=== PATIENT | female | born 1990 | race African-American/Black ===

== ENCOUNTER 2016-08-28 18:27 | Emergency (ER) | payer OTHER ==
[~2016-08-28] VITALS: Ht 180.3 cm; Wt 54.4 kg
[2016-08-28 18:57] VITALS: BP 113/77
[2016-08-28 19:43] LABS: BASOPHILS % (AUTO) 2.2 % (0.0-2.0); EOSINOPHILS % (AUTO) 0.3 % (0.0-3.0); LYMPHOCYTES % (AUTO) 12.1 % (20.0-45.0); MEAN CORPUSCULAR HGB CONC 30.7 G/DL (32.0-36.0); MEAN CORPUSCULAR VOLUME 91 FL (80-99); MEAN PLATELET VOLUME 7.4 FL (6.5-10.1); MONOCYTES % (AUTO) 9.3 % (1.0-10.0); NEUTROPHILS % (AUTO) 76.1 % (45.0-75.0); PLATELET COUNT 375 K/UL (150-450); RED BLOOD COUNT 5.11 M/UL (4.20-5.40); RED CELL DISTRIBUTION WIDTH 12.2 % (11.6-14.8); WHITE BLOOD COUNT 11.7 K/UL (4.8-10.8)
--- NOTE | 2016-08-28 19:45 | Emergency Room Report ---
History of Present Illness General Chief Complaint: Upper Extremity Injury Source: Patient Present Illness HPI 25-year-old female presents to the emergency department complaining of bruise to the forehead after a syncopal episode earlier this afternoon hours. Pt reports 5/10 pain, localized, and tenderness. Patient denies symptoms leading up to syncope. Patient describes brief loss of consciousness. Patient reports feeling mildly lightheaded after getting up to walk to the elevator. Patient describes not eating any food all day. Patient also reports that she had recent URI such as nasal congestion and rhinorrhea with decrease in appetite. Patient denies abdominal pain, cough, chest pain, palpitations, seizures, lesions in the mouth. Patient denies drug use or . Patient denies nausea, vomiting, fevers, chills. Patient denies past medical history. Denies, weakness, recent head injury, Constipation or diarrhea. Denies Neck or back pain. Event was unwitnessed. This is the first occurrence of syncopal episode for this patient. Denies CP, Palpitations, AMS, dizziness, Changes in Vision, Sensation, paresthesias, or a sudden severe headache. Allergies: Coded Allergies: CEPHALEXIN (Verified Allergy, Unknown, 08/28/16) Patient History Past Medical History: see triage record Past Surgical History: none Pertinent Family History: none Last Menstrual Period: 12/21/2015 Now: No Reviewed Nursing Documentation: PMH: Agreed, PSxH: Agreed Nursing Documentation-PMH Past Medical History: No History, Except For Review of Systems All Other Systems: negative except mentioned in HPI Physical Exam Vital Signs Date Time Temp Pulse Resp B/P Pulse Ox O2 Delivery O2 Flow Rate FiO2 08/28/16 18:43 97.3 102 16 113/77 99 Room Air Sp02 EP Interpretation: reviewed, normal General Appearance: no apparent distress, alert, GCS 15, non-toxic Head: normocephalic, other - 2cm hematoma noted to the forehead. Eyes: bilateral eye PERRL, bilateral eye normal inspection ENT: hearing grossly normal, normal pharynx, no angioedema, normal voice, TMs + canals normal, uvula midline, moist mucus membranes, other - no oral lesions noted. Neck: full range of motion, no meningismus, no bony tend, supple/symm/no masses Respiratory: chest non-tender, lungs clear, normal breath sounds, speaking full sentences Cardiovascular #1: regular rate, rhythm, no edema Cardiovascular #2: 2+ radial (R), 2+ radial (L) Rectal: deferred Genitourinary: normal inspection, no CVA tenderness Musculoskeletal: back normal, gait/station normal, normal range of motion, non- tender, no calf tenderness Neurologic: alert, oriented x3, responsive, motor strength/tone normal, sensory intact, speech normal, other - negative puga's Psychiatric: judgement/insight normal, memory normal, mood/affect normal, no suicidal/homicidal ideation Skin: normal color, no rash, warm/dry, well hydrated Lymphatic: no adenopathy Medical Decision Making PA Attestation Dr. arreola is my supervising Physician whom patient management has been discussed with. Diagnostic Impression: Primary Impression: Contusion Qualified Codes: S00.83XA - Contusion of other part of head, initial encounter Additional Impression: Dehydration, mild ER Course Pt. presents to the ED c/o possible syncopal episode at noon today, first occurrence Ddx considered but are not limited to dysrhythmia, methamphetamine, hypoglycemia , hypovolemia, , intracranial process, vasovagal. Vital signs: are WNL, pt. is afebrile H&PE are most consistent with syncopal episode, most likely secondary to dehydration or hypoglycemia, will do basic lab work and EKG. Pt does not exhibit focal neurological deficit, AMS, or evidence of seizure activity. ORDERS: -12-lead EK BPM, No acute ST changes, interpreted by Dr. Arevalo. -CBC: - CMP: mild hypochloremia -Troponin: WNL -CK: WNL -Ck-MB: WNL ED INTERVENTIONS: -500 mL normal saline bolus IV -DMV : loss of consciousness form was filled out, and given to RN for completion and transmission to DMV. DISCHARGE: At this time pt. is stable for d/c to home. Will provide printed patient care instructions, and any necessary prescriptions. Care plan and follow up instructions have been discussed with the patient prior to discharge. Labs Test 08/28/16 19:30 White Blood Count 11.7 K/UL (4.8-10.8) Red Blood Count 5.11 M/UL (4.20-5.40) Hemoglobin 14.3 G/DL (12.0-16.0) Hematocrit 46.6 % (37.0-47.0) Mean Corpuscular Volume 91 FL (80-99) Mean Corpuscular Hemoglobin 28.0 PG (27.0-31.0) Mean Corpuscular Hemoglobin Concent 30.7 G/DL (32.0-36.0) Red Cell Distribution Width 12.2 % (11.6-14.8) Platelet Count 375 K/UL (150-450) Mean Platelet Volume 7.4 FL (6.5-10.1) Neutrophils (%) (Auto) 76.1 % (45.0-75.0) Lymphocytes (%) (Auto) 12.1 % (20.0-45.0) Monocytes (%) (Auto) 9.3 % (1.0-10.0) Eosinophils (%) (Auto) 0.3 % (0.0-3.0) Basophils (%) (Auto) 2.2 % (0.0-2.0) Sodium Level 140 mEQ/L (135-145) Potassium Level 4.0 mEQ/L (3.4-4.9) Chloride Level 96 mEQ/L (98-107) Carbon Dioxide Level 27 mEQ/L (20-30) Anion Gap 17 (5-15) Blood Urea Nitrogen 10 mg/dL (7-23) Creatinine 1.0 mg/dL (0.5-0.9) Estimat Glomerular Filtration Rate > 60 mL/min (>60) Glucose Level 90 mg/dL (74-106) Calcium Level 10.1 mg/dL (8.6-10.2) Total Bilirubin 0.3 mg/dL (0.0-1.2) Aspartate Amino Transf (AST/SGOT) 23 U/L (5-40) Alanine Aminotransferase (ALT/SGPT) 14 U/L (3-33) Alkaline Phosphatase 79 U/L (35-104) Total Creatine Kinase 173 U/L (26-140) Creatine Kinase MB 1.9 ng/mL (< 3.8) Creatine Kinase MB Relative Index 1.0 Troponin I < 0.30 ng/mL (<=0.30) Total Protein 8.9 g/dL (6.6-8.7) Albumin 4.7 g/dL (3.5-5.2) Globulin 4.2 g/dL Albumin/Globulin Ratio 1.1 (1.0-2.7) Last Vital Signs Date Time Temp Pulse Resp B/P Pulse Ox O2 Delivery O2 Flow Rate FiO2 08/28/16 18:57 97.3 80 18 113/77 99 Room Air Disposition: HOME, SELF-CARE Condition: Stable Scripts Acetaminophen* (TYLENOL EXTRA STRENGTH*) 500 Mg Tablet 500 MG ORAL Q6H, #30 TAB 0 Refills Prov: Annmarie Sen 08/28/16 Referrals: [facility] (PCP) Patient Instructions: Dehydration, Adult, [id number], Syncope, [id number] Additional Instructions: Take medications as directed. Follow up with PCP in 3-5 days Return sooner to ED if new symptoms occur, or current symptoms become worse. Annmarie Sen Aug 28, 2016 19:45
[2016-08-28 19:57] LABS: TROPONIN I < 0.30 ng/mL (<=0.30)
[2016-08-28 19:58] LABS: ALANINE AMINOTRANSFERASE 14 U/L (3-33); ALBUMIN/GLOBULIN RATIO 1.1 (1.0-2.7); ANION GAP 17 (5-15); ASPARTATE AMINO TRANSFERASE 23 U/L (5-40); CALCIUM 10.1 mg/dL (8.6-10.2); CARBON DIOXIDE 27 mEQ/L (20-30); CHLORIDE 96 mEQ/L (98-107); GLOMERULAR FILTRATION RATE > 60 mL/min (>60); HEMOLYSIS 6; SODIUM 140 mEQ/L (135-145); TOTAL PROTEIN 8.9 g/dL (6.6-8.7)
[2016-08-28 20:08] LABS: CKMB 1.9 ng/mL (< 3.8)
[2016-08-28] MEDS ORDERED: TYLENOL EXTRA500 MG ORAL (20:57)
[2016-08-28 21:28] VITALS: BP 115/78
--- NOTE | 2016-08-30 19:04 | Cardiology Report ---
APPROVED REPORT EKG Measurement Heart [id number] Normal sinus rhythm Early repolarization Normal ECG
== END 2016-08-28 21:30 | disposition home or self-care (01) ==
LOC: EMR 19:15
DX: S00.83XA Contusion of other part of head, initial encounter (principal); E86.0 Dehydration; W19.XXXA Unspecified fall, initial encounter; Y92.9 Unspecified place or not applicable; Z88.1 Allergy status to other antibiotic agents
CPT/HCPCS: 36415; 80053; 82550; 82553; 84484; 85025; 93005; 96374